=== PATIENT | female | born 1935 | race Caucasian/White ===

== ENCOUNTER 2021-07-13 14:58 | Outpatient (CLI) | payer MEDICARE | END 2021-07-13 14:59 | disposition home or self-care (01) | LOC: CSHMAMMO 14:58 | PROVIDERS: ATTEND Internal Medicine | DX: Z12.31 Encounter for screening mammogram for malignant neoplasm of breast (principal) | CPT/HCPCS: 77063; 77067 ==

== ENCOUNTER 2023-11-10 11:55 | Outpatient (CLI) | payer MEDICARE | END 2023-11-10 11:56 | disposition home or self-care (01) | LOC: CSHMAMMO 11:55 | PROVIDERS: ATTEND Internal Medicine | DX: Z12.31 Encounter for screening mammogram for malignant neoplasm of breast (principal) | CPT/HCPCS: 77063; 77067 ==

== ENCOUNTER 2025-06-20 11:11 | Inpatient (IN) | payer OTHER ==
[2025-06-20 12:53] LABS: #Basophils 0.04 10x3/uL (0.0-0.2); #Eosinophils Less than 0.03 10x3/uL (0.0-0.5); #Monocytes 0.36 10x3/uL (0.0-1.1); #Neutrophils 5.43 10x3/uL (1.5-8.4); %Basophils 0.6 % (0.0-2.0); %Eosinophils 0.3 % (0.0-6.0); %Lymphocytes 17.2 % (18.0-47.0); %Monocytes 5.1 % (0.0-10.0); %Neutrophils 76.2 % (40.0-75.0); Hematocrit 44.3 % (34.9-44.5); Hemoglobin 14.4 g/dL (12.0-15.5); Mean Corpuscular Hemoglobin 29.0 pg (27.0-33.0); Mean Corpuscular Volume 89.1 fL (81.6-98.3); Platelet Count 229 10x3/uL (150-450); Red Blood Cell (RBC) Count 4.97 10x6/uL (3.90-5.03); White Blood Cell (WBC) Count 7.11 10x3/uL (3.5-10.5)
[2025-06-20 13:08] LABS: ALT (SGPT) Less than 7 U/L (Less than 34); AST (SGOT) 17 U/L (11-34); Albumin 3.1 g/dL (3.1-4.5); Alkaline Phosphatase 70 U/L (40-110); Anion Gap 15 mmol/L (10-20); BUN (Urea Nitrogen) 14 mg/dL (9.8-20.1); Bilirubin, Total 0.6 mg/dL (0.3-1.2); Calc. Creatinine Clearance 0 mL/min (70-130); Calcium 8.7 mg/dL (7.8-10.44); Carbon Dioxide 31 mmol/L (23-31); Chloride 96 mmol/L (98-107); Globulin 3.7 g/dL (2.4-3.5); Glucose 93 mg/dL (83-110); Magnesium 1.8 mg/dL (1.6-2.6); Potassium 3.3 mmol/L (3.5-5.1); Sodium 139 mmol/L (136-145)
[2025-06-20 13:16] LABS: Troponin I Less than 0.010 ng/mL (< 0.028)
[2025-06-20 13:47] LABS: Actual Bicarbonate (HCO3v) 34.0 mEq/L (22-28); Analyzer IN Cardio CS ER; Base Excess 6.8 mEq/L (-2 - +2); Calcium, Ionized (venous) 1.05 mmol/L (1.16-1.32); Chloride (VBG) 95 mmol/L (98-106); Critical Notified By: S. Buerger, RRT; Hematocrit-VBG 47 % (36.0-47.0); Hemoglobin (Hb) 16.0 g/dL (11.7-16.1); Potassium (VBG) 3.15 mmol/L (3.70-5.30); Puncture Site Other Site; RapidComm Collect By lab; Sodium 143 mmol/L (133-146)
[2025-06-20] MEDS ORDERED: Senokot S 8.6-50 MG TAB PO PRN (14:28)
[2025-06-20] MEDS ORDERED: Acetaminophen 325 MG TAB PO PRN (14:28)
[2025-06-20] MEDS ORDERED: Ondansetron PF 4 MG/2 ML Vial IVP PRN (14:28)
[2025-06-20 14:40] LABS: Glucose, Urine (Dipstick) Normal (Negative); Leukocyte 25 (Negative); Protein, Urine (Dipstick) 30 mg/dl (Neg-Trace); Specific Gravity, Urine 1.010 (1.005-1.030)
[2025-06-20 14:55] LABS: CAUTI Indications for Culture Alt mental st,lethar
[2025-06-20 14:56] LABS: Bacteria/HPF 2+ HPF (None Seen); Mucous/LPF 2+ LPF (<2+)
[2025-06-20 14:59] LABS: Urine Culture Reflex No No
[2025-06-20] MEDS ORDERED: Potassium Bicarbonate/Cit Ac 20 MEQ TAB ONE (15:11)
[2025-06-20] MEDS: Famotidine 20 MG TAB PO SCH (20:42)
[2025-06-21 03:38] LABS: #Basophils 0.04 10x3/uL (0.0-0.2); #Eosinophils 0.07 10x3/uL (0.0-0.5); #Monocytes 0.43 10x3/uL (0.0-1.1); #Neutrophils 4.76 10x3/uL (1.5-8.4); %Basophils 0.6 % (0.0-2.0); %Eosinophils 1.1 % (0.0-6.0); %Lymphocytes 17.6 % (18.0-47.0); %Monocytes 6.6 % (0.0-10.0); %Neutrophils 73.6 % (40.0-75.0); Hematocrit 41.5 % (34.9-44.5); Hemoglobin 13.6 g/dL (12.0-15.5); Mean Corpuscular Hemoglobin 28.9 pg (27.0-33.0); Mean Corpuscular Volume 88.3 fL (81.6-98.3); Platelet Count 190 10x3/uL (150-450); Red Blood Cell (RBC) Count 4.70 10x6/uL (3.90-5.03); White Blood Cell (WBC) Count 6.47 10x3/uL (3.5-10.5)
[2025-06-21 03:51] LABS: Anion Gap 11 mmol/L (10-20); BUN (Urea Nitrogen) 14 mg/dL (9.8-20.1); Calc. Creatinine Clearance 31 mL/min (70-130); Calcium 8.9 mg/dL (7.8-10.44); Carbon Dioxide 35 mmol/L (23-31); Chloride 96 mmol/L (98-107); Glucose 82 mg/dL (83-110); Potassium 3.4 mmol/L (3.5-5.1); Sodium 139 mmol/L (136-145)
[2025-06-21] MEDS: Aspirin 81 mg Enteric Coated Tablet PO SCH (11:55)
[2025-06-21 15:46] VITALS: BMI 13.5
[2025-06-21 16:50] VITALS: BMI 13.5
[2025-06-21] MEDS: Melatonin 3 MG TAB PO PRN (20:58)
[2025-06-22 06:01] LABS: Platelet Count 156 10x3/uL (150-450)
[2025-06-22 06:02] LABS: #Basophils 0.03 10x3/uL (0.0-0.2); #Eosinophils 0.06 10x3/uL (0.0-0.5); #Monocytes 0.34 10x3/uL (0.0-1.1); #Neutrophils 2.73 10x3/uL (1.5-8.4); %Basophils 0.7 % (0.0-2.0); %Eosinophils 1.5 % (0.0-6.0); %Lymphocytes 21.9 % (18.0-47.0); %Monocytes 8.4 % (0.0-10.0); %Neutrophils 67.3 % (40.0-75.0); Hematocrit 38.6 % (34.9-44.5); Hemoglobin 12.6 g/dL (12.0-15.5); Mean Corpuscular Hemoglobin 29.1 pg (27.0-33.0); Mean Corpuscular Volume 89.1 fL (81.6-98.3); Red Blood Cell (RBC) Count 4.33 10x6/uL (3.90-5.03); White Blood Cell (WBC) Count 4.06 10x3/uL (3.5-10.5)
[2025-06-22 06:12] LABS: Anion Gap 11 mmol/L (10-20); BUN (Urea Nitrogen) 14 mg/dL (9.8-20.1); Calc. Creatinine Clearance 28 mL/min (70-130); Calcium 8.7 mg/dL (7.8-10.44); Carbon Dioxide 34 mmol/L (23-31); Chloride 96 mmol/L (98-107); Glucose 82 mg/dL (83-110); Potassium 3.3 mmol/L (3.5-5.1); Sodium 138 mmol/L (136-145)
[2025-06-22] MEDS: Famotidine 20 MG TAB PO SCH (09:40)
[2025-06-22] MEDS: Pantoprazole 40 MG DR.TAB PO SCH (09:41)
[2025-06-22] MEDS ORDERED: Iopamidol 370 76% 100 ML VIAL ONE (11:35)
[2025-06-23 04:12] LABS: #Basophils 0.04 10x3/uL (0.0-0.2); #Eosinophils 0.09 10x3/uL (0.0-0.5); #Monocytes 0.52 10x3/uL (0.0-1.1); #Neutrophils 2.74 10x3/uL (1.5-8.4); %Basophils 0.8 % (0.0-2.0); %Eosinophils 1.8 % (0.0-6.0); %Lymphocytes 31.7 % (18.0-47.0); %Monocytes 10.4 % (0.0-10.0); %Neutrophils 54.9 % (40.0-75.0); Hematocrit 42.5 % (34.9-44.5); Hemoglobin 13.8 g/dL (12.0-15.5); Mean Corpuscular Hemoglobin 29.0 pg (27.0-33.0); Mean Corpuscular Volume 89.3 fL (81.6-98.3); Platelet Count 158 10x3/uL (150-450); Red Blood Cell (RBC) Count 4.76 10x6/uL (3.90-5.03); White Blood Cell (WBC) Count 4.99 10x3/uL (3.5-10.5)
[2025-06-23 04:25] LABS: Anion Gap 12 mmol/L (10-20); BUN (Urea Nitrogen) 13 mg/dL (9.8-20.1); Calc. Creatinine Clearance 32 mL/min (70-130); Calcium 8.8 mg/dL (7.8-10.44); Carbon Dioxide 34 mmol/L (23-31); Chloride 96 mmol/L (98-107); Glucose 79 mg/dL (83-110); Potassium 3.8 mmol/L (3.5-5.1); Sodium 138 mmol/L (136-145)
[2025-06-25 12:18] VITALS: BP 160/78; TEMP 97.5
== END 2025-06-25 12:19 | disposition home or self-care (01) | DRG 312 ==
LOC: CSHERS 11:11 → CSHTELE 14:06 → CSHICU 19:44 → OBSVTOIN 06-21 09:45 → CSHTELE 06-21 12:38
PROVIDERS: ADMIT Hospitalist; ATTEND Hospitalist
DX: I95.1 Orthostatic hypotension (principal); J98.59 Other diseases of mediastinum, not elsewhere classified; E43 Unspecified severe protein-calorie malnutrition; K50.90 Crohn's disease, unspecified, without complications; F03.93 Unspecified dementia, unspecified severity, with mood disturbance; Z68.1 Body mass index [BMI] 19.9 or less, adult; E87.6 Hypokalemia; I10 Essential (primary) hypertension; E78.5 Hyperlipidemia, unspecified; E89.0 Postprocedural hypothyroidism; I49.1 Atrial premature depolarization; I25.10 Atherosclerotic heart disease of native coronary artery without angina pectoris; Z98.890 Other specified postprocedural states; Z90.49 Acquired absence of other specified parts of digestive tract; Z90.710 Acquired absence of both cervix and uterus; Z79.890 Hormone replacement therapy; Z79.899 Other long term (current) drug therapy; Z95.1 Presence of aortocoronary bypass graft
CPT/HCPCS: 36415; 71045; 71260; 80048; 80053; 81001; 82805; 83735; 83880; 84484; 85025; 93005; 93306; 97139; G0378; Q9967